=== PATIENT | female | born 1970 ===

== ENCOUNTER 2016-10-08 23:16 | Emergency (ER) | payer SELFPAY ==
[2016-10-08 23:39] VITALS: BP 159/96; PULSE 71; RESP 16; TEMP 98.5; O2SAT 100
--- NOTE | 2016-10-09 00:31 | ED PDOC ---
HPI: Skin/Bite Injury Time Seen by Provider: 10/09/16 00:08 Chief Complaint (Nursing): Abnormal Skin Integrity Chief Complaint (Provider): itchy rash History Per: Patient, Family (daughter is translating in Lithuanian for patient at bedside) Additional Complaint(s): 46-year-old female with history of hypertension presents to emergency department with itchy rash to entire body 1 week. Patient is unaware of any known allergen exposure, she denies any use of new lotions, soaps, detergents or perfumes. No recent travel, no dietary changes. No associated shortness of breath or throat discomfort. No medications taken for relief of pruritus. Past Medical History Reviewed: Historical Data Vital Signs: Last Vital Signs Temp 98.5 F 10/08/16 23:34 Pulse 71 10/08/16 23:34 Resp 16 10/08/16 23:34 BP 159/96 H 10/08/16 23:34 Pulse Ox 100 10/09/16 00:31 - Medical History PMH: HTN - Surgical History Surgical History: No Surg Hx - Family History Family History: States: No Known Family Hx - Living Arrangements Living Arrangements: With Family - Social History Current smoker - smoking cessation education provided: No Alcohol: None Drugs: Denies - Home Medications Home Medications: Ambulatory Orders Medication Instructions Recorded Cetirizine Hydrochloride [Zyrtec] 10 mg PO DAILY 05/30/14 Lisinopril/Hydrochlorothiazide 1 tab PO DAILY 05/30/14 [Lisinopril-Hctz 20-25 mg Tab] Tramadol Hydrochloride [Tramadol] 1 tab PO PRN PRN 05/30/14 Meclizine [Meclizine*] 25 mg PO BID PRN #10 tab 11/13/14 Ibuprofen [Motrin Tab] 800 mg PO TID PRN #30 tab 04/28/15 DiphenhydrAMINE [Benadryl] 25 mg PO ASDIR #1 packet 10/09/16 Prednisone 50 mg PO DAILY #5 tablet 10/09/16 - Allergies Allergies/Adverse Reactions: Allergies Allergy/AdvReac Type Severity Reaction Status Date / Time No Known Allergies Allergy Verified 03/30/14 16:18 Review of Systems ROS Statement: Except As Marked, All Systems Reviewed And Found Negative Constitutional: Negative for: Fever ENT: Negative for: Throat Pain, Throat Swelling Skin: Positive for: Rash Physical Exam - Reviewed Nursing Documentation Reviewed: Yes Vital Signs Reviewed: Yes - Physical Exam Appears: Positive for: Well, Non-toxic, No Acute Distress Head Exam: Positive for: ATRAUMATIC, NORMAL INSPECTION Skin: Positive for: Rash (Urticarial maculopapular lesions noted to bilateral upper and lower extremities as well as torso, no pustular lesions, no active drainage or bleeding) Eye Exam: Positive for: Normal appearance, EOMI, PERRL Cardiovascular/Chest: Positive for: Regular Rate, Rhythm Respiratory: Positive for: Normal Breath Sounds Extremity: Negative for: Pedal Edema Neurologic/Psych: Positive for: Alert, Oriented - ECG O2 Sat by Pulse Oximetry: 100 Pulse Ox Interpretation: Normal Medical Decision Making Medical Decision Making: Impression: Contact dermatitis. Plan: Oral Benadryl dose administered along with IM Solu-Medrol. Patient given prescriptions for Benadryl and prednisone. She was referred to clinic for follow-up. Disposition - Clinical Impression Clinical Impression: Contact dermatitis - Patient ED Disposition Is Patient to be Admitted: No Counseled Patient/Family Regarding: Diagnosis, Need For Followup, Rx Given - Disposition Referrals: [facility] [Outside] Disposition: Routine/Home Disposition Time: 00:52 Condition: STABLE Additional Instructions: Take prescription medications as directed. Follow up in 2-3 days with clinic. Prescriptions: DiphenhydrAMINE [Benadryl] 25 mg PO ASDIR #1 packet Prednisone 50 mg PO DAILY #5 tablet Instructions: Contact Dermatitis (ED) Print Language: HEBREW
== END 2016-10-09 01:53 | disposition home or self-care (01) ==
LOC: H.ER 23:16
DX: L25.9 Unspecified contact dermatitis, unspecified cause (principal)

== ENCOUNTER 2016-12-11 23:04 | Emergency (ER) | payer SELFPAY ==
[2016-12-11 23:12] VITALS: RESP 16; TEMP 98.8; O2SAT 99
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
[2016-12-12 00:09] VITALS: BP 186/84; PULSE 84
--- NOTE | 2016-12-12 08:44 | RAD ---
PROCEDURE: Radiographs of the Chest and Left Ribs. HISTORY: rib pain COMPARISON: None available. TECHNIQUE: Frontal radiograph of the chest and multiple oblique radiographs of the left ribs were obtained. FINDINGS: LEFT RIBS: No fracture or focal lesion visualized. LUNGS: Clear. PLEURA: No pneumothorax or pleural fluid. CARDIOVASCULAR: Normal sized heart. No pulmonary vascular congestion. OTHER FINDINGS: None. IMPRESSION: Evidence of acute fracture. No evidence of left pleural effusion or pneumothorax.
== END 2016-12-12 00:09 | disposition home or self-care (01) ==
LOC: H.ER 23:04
DX: S29.9XXA Unspecified injury of thorax, initial encounter (principal); V49.59XA Passenger injured in collision with other motor vehicles in traffic accident, initial encounter; Y92.410 Unspecified street and highway as the place of occurrence of the external cause

== ENCOUNTER 2017-06-14 09:32 | Emergency (ER) | payer SELFPAY ==
[2017-06-14 09:56] VITALS: TEMP 98.6
[2017-06-14 11:11] LABS: BASO % 0.3 % (0.0-2.0); EOS # 0.1 K/uL (0.0-0.7); EOS % 1.7 % (0.0-4.0); HEMOGLOBIN 13.2 g/dL (12.0-16.0); MEAN CELL VOLUME 80.4 fl (81.0-99.0); MEAN CORPUSCULAR HEMOGLOBIN 25.8 pg (27.0-31.0); MEAN CORPUSCULAR HGB CONC 32.1 g/dL (33.0-37.0); MEAN PLATELET VOLUME 8.1 fl (7.2-11.7); MONO # 0.3 K/uL (0.0-0.8); MONO % 6.4 % (0.0-10.0); NEUT # 3.8 K/uL (1.8-7.0); NEUT % 72.6 % (50.0-75.0); NRBC % 0.1 % (0.0-0.0); RBC 5.11 Mil/uL (3.80-5.20); RED CELL DISTRIBUTION WIDTH 14.1 % (11.5-14.5); WHITE BLOOD COUNT 5.2 K/uL (4.8-10.8)
--- NOTE | 2017-06-14 11:17 | ED PDOC ---
HPI: Hypertension/Hypotension Time Seen by Provider: 06/14/17 10:08 Chief Complaint (Nursing): High Blood Pressure Chief Complaint (Provider): High Blood Pressure History Per: Patient History/Exam Limitations: no limitations Onset/Duration Of Symptoms: Mins (cryptanalyst) Current Symptoms Are (Timing): Still Present Additional Complaint(s): Lina is a 47 y/o female with a history of hypertension who was sent to the ED from the clinic for high blood pressure. Patient has not taken medication for 3 months and states it is partly because her lost his job and she has been busy taking care of the family so she has neglected to follow up with a doctor. For the past 2-3 days she has had intermittent blurred vision that comes and goes. She denies neurological motor problems and states she didn't realize her blood pressure was high. PMD: Clinic Past Medical History Reviewed: Historical Data, Nursing Documentation, Vital Signs Vital Signs: Last Vital Signs Temp 98.6 F 06/14/17 09:51 Pulse 79 06/14/17 10:53 Resp 15 06/14/17 09:51 BP 190/103 H 06/14/17 10:53 Pulse Ox 100 06/14/17 09:51 - Medical History PMH: Gall Bladder Disease ((+) Gallstones), HTN Denies: HIV, Chronic Kidney Disease - Family History Family History: States: Unknown Family Hx - Home Medications Home Medications: Ambulatory Orders Medication Instructions Recorded Cetirizine Hydrochloride [Zyrtec] 10 mg PO DAILY 05/30/14 Lisinopril/Hydrochlorothiazide 1 tab PO DAILY 05/30/14 [Lisinopril-Hctz 20-25 mg Tab] Tramadol Hydrochloride [Tramadol] 1 tab PO PRN PRN 05/30/14 Meclizine [Meclizine*] 25 mg PO BID PRN #10 tab 11/13/14 Ibuprofen [Motrin Tab] 800 mg PO TID PRN #30 tab 04/28/15 DiphenhydrAMINE [Benadryl] 25 mg PO ASDIR #1 packet 10/09/16 Prednisone 50 mg PO DAILY #5 tablet 10/09/16 Ketorolac Tromethamine [Toradol] 10 mg PO TID #20 cap 12/11/16 Azithromycin [Zithromax] 250 mg PO DAILY #6 tab 12/12/16 Lisinopril/Hydrochlorothiazide 1 each PO DAILY #30 tablet 06/14/17 [Lisinopril-Hctz 20-25 mg Tab] - Allergies Allergies/Adverse Reactions: Allergies Allergy/AdvReac Type Severity Reaction Status Date / Time No Known Allergies Allergy Verified 06/14/17 09:51 Review of Systems ROS Statement: Except As Marked, All Systems Reviewed And Found Negative Eyes: Negative for: Vision Change Cardiovascular: Positive for: Other (high blood pressure). Negative for: Chest Pain Respiratory: Negative for: Shortness of Breath Musculoskeletal: Negative for: Back Pain Neurological: Negative for: Headache, Dizziness Physical Exam - Reviewed Nursing Documentation Reviewed: Yes Vital Signs Reviewed: Yes - Physical Exam Appears: Positive for: No Acute Distress Head Exam: Positive for: ATRAUMATIC, NORMOCEPHALIC Skin: Positive for: Normal Color, Warm, Dry. Negative for: Rash Neck: Positive for: Normal, Painless ROM, Supple Cardiovascular/Chest: Positive for: Regular Rate, Rhythm, Other (high blood pressure) Respiratory: Positive for: Normal Breath Sounds. Negative for: Respiratory Distress Gastrointestinal/Abdominal: Positive for: Normal Exam, Soft. Negative for: Tenderness Extremity: Negative for: Pedal Edema Neurologic/Psych: Positive for: Alert, Oriented. Negative for: Motor/Sensory Deficits - Laboratory Results Result Diagrams: 06/14/17 11:00 06/14/17 11:00 - ECG O2 Sat by Pulse Oximetry: 100 (RA) Pulse Ox Interpretation: Normal Medical Decision Making Medical Decision Making: Time: 10:39 Initial Impression: High blood pressure Initial Plan: --EKG --BMP --CBC --Catapres --Zestril Scribe Attestation: Documented by Arturo Layton, acting as a scribe for Dr. Donna Castro MD. Provider Scribe Attestation: All medical record entries made by the Scribe were at my direction and personally dictated by me. I have reviewed the chart and agree that the record accurately reflects my personal performance of the history, physical exam, medical decision making, and the department course for this patient. I have also personally directed, reviewed, and agree with the discharge instructions and disposition. 1.00pm - BP now in acceptable range. Case d/w with FP resident. okay to discharge with rx for continuation of previous medication. Disposition - Clinical Impression Clinical Impression: Uncontrolled hypertension - Patient ED Disposition Is Patient to be Admitted: No Doctor Will See Patient In The: Office Counseled Patient/Family Regarding: Studies Performed, Diagnosis, Need For Followup, Rx Given - Disposition Referrals: [facility] [Outside] Disposition: Routine/Home Disposition Time: 13:00 Condition: IMPROVED Prescriptions: Lisinopril/Hydrochlorothiazide [Lisinopril-Hctz 20-25 mg Tab] 1 each PO DAILY # 30 tablet Instructions: Hypertension (ED) Forms: [facility] (Japanese) Print Language: MACANESE - POA Present On Arrival: None
[2017-06-14 11:21] LABS: BLOOD UREA NITROGEN 9 mg/dl (7-17); GFR AFRICAN-AMERICAN > 60; GFR NON-AFRICAN AMERICAN > 60
[2017-06-14 12:26] VITALS: RESP 18
[2017-06-14 12:58] VITALS: PULSE 72
[2017-06-14 13:21] VITALS: BP 132/82; O2SAT 98
--- NOTE | 2017-06-14 14:02 | CARD ---
APPROVED REPORT EKG Measurement Heart [id number] <Conclusion> Normal sinus rhythm Normal ECG
== END 2017-06-14 13:26 | disposition home or self-care (01) ==
LOC: H.ER 09:32
DX: I10 Essential (primary) hypertension (principal)

== ENCOUNTER 2017-10-24 21:53 | Emergency (ER) | payer SELFPAY ==
[2017-10-24 22:46] VITALS: BP 151/89; PULSE 67; RESP 18; TEMP 98; O2SAT 100
--- NOTE | 2017-10-24 23:07 | ED PDOC ---
HPI: CCC, URI, Sore Throat Time Seen by Provider: 10/24/17 22:46 Chief Complaint (Nursing): ENT Problem History Per: Patient Additional Complaint(s): Pt. states for the past week she's had cough, congestion, sore throat. Reports cough is productive of white sputum. Denies chest pain, SOB, hemoptysis, fever, sick contacts, recent travel. Past Medical History Vital Signs: Last Vital Signs Temp 98.0 F 10/24/17 22:41 Pulse 67 10/24/17 22:41 Resp 18 10/24/17 22:41 BP 151/89 H 10/24/17 22:41 Pulse Ox 100 10/24/17 23:08 - Medical History PMH: Gall Bladder Disease ((+) Gallstones), HTN Denies: HIV, Chronic Kidney Disease - Family History Family History: States: Unknown Family Hx - Home Medications Home Medications: Ambulatory Orders Medication Instructions Recorded Cetirizine Hydrochloride [Zyrtec] 10 mg PO DAILY 05/30/14 Lisinopril/Hydrochlorothiazide 1 tab PO DAILY 05/30/14 [Lisinopril-Hctz 20-25 mg Tab] Tramadol Hydrochloride [Tramadol] 1 tab PO PRN PRN 05/30/14 Meclizine [Meclizine*] 25 mg PO BID PRN #10 tab 11/13/14 Ibuprofen [Motrin Tab] 800 mg PO TID PRN #30 tab 04/28/15 DiphenhydrAMINE [Benadryl] 25 mg PO ASDIR #1 packet 10/09/16 Prednisone 50 mg PO DAILY #5 tablet 10/09/16 Ketorolac Tromethamine [Toradol] 10 mg PO TID #20 cap 12/11/16 Azithromycin [Zithromax] 250 mg PO DAILY #6 tab 12/12/16 Lisinopril/Hydrochlorothiazide 1 each PO DAILY #30 tablet 06/14/17 [Lisinopril-Hctz 20-25 mg Tab] Azithromycin [Zithromax] 250 mg PO DAILY #6 tab 10/24/17 Benzonatate [Tessalon Perle] 100 mg PO Q8 PRN #10 capsule 10/24/17 - Allergies Allergies/Adverse Reactions: Allergies Allergy/AdvReac Type Severity Reaction Status Date / Time No Known Allergies Allergy Verified 10/24/17 22:41 Review of Systems ROS Statement: Except As Marked, All Systems Reviewed And Found Negative ENT: Positive for: Nose Congestion, Throat Pain Respiratory: Positive for: Cough Physical Exam - Physical Exam Appears: Positive for: Well, Non-toxic, No Acute Distress Skin: Positive for: Normal Color, Warm. Negative for: Rash Eye Exam: Positive for: Normal appearance ENT: Positive for: TM Is/Are (non-erythematous, non-bulging b/l), Pharyngeal Erythema. Negative for: Tonsillar Exudate, Tonsillar Swelling Cardiovascular/Chest: Positive for: Regular Rate, Rhythm Respiratory: Positive for: Normal Breath Sounds. Negative for: Rales, Wheezing , Plerual Rub Neurologic/Psych: Positive for: Alert, Oriented - ECG O2 Sat by Pulse Oximetry: 100 - Progress ED Course And Treament: Rapid strep: negative. Disposition - Clinical Impression Clinical Impression: Acute bronchitis - Patient ED Disposition Is Patient to be Admitted: No - Disposition Referrals: [facility] [Outside] Disposition: Routine/Home Disposition Time: 23:29 Condition: STABLE Additional Instructions: Follow up with PMD for further evaluation. Return to ED immediately if symptoms worsen. Prescriptions: Azithromycin [Zithromax] 250 mg PO DAILY #6 tab Benzonatate [Tessalon Perle] 100 mg PO Q8 PRN #10 capsule PRN Reason: Cough Instructions: Acute Bronchitis, Adult (DC) Forms: [employer] (Togolese)
== END 2017-10-24 23:43 | disposition home or self-care (01) ==
LOC: H.ER 21:53
DX: J20.9 Acute bronchitis, unspecified (principal); I10 Essential (primary) hypertension

== ENCOUNTER 2017-11-18 22:42 | Emergency (ER) | payer SELFPAY ==
[2017-11-18 22:49] VITALS: RESP 18
--- NOTE | 2017-11-18 23:28 | ED PDOC ---
HPI: Abdomen Time Seen by Provider: 11/18/17 23:12 Chief Complaint (Nursing): Abdominal Pain Chief Complaint (Provider): Abdominal Pain History Per: Patient History/Exam Limitations: no limitations Onset/Duration Of Symptoms: Days (x3) Current Symptoms Are (Timing): Still Present Location Of Pain/Discomfort: RUQ Additional Complaint(s): 47 y/o female with a PMHx of HTN and gall stones presents to the ED complaining of a dry hacking cough, onset three days. Patient states it could be related to her previous diagnosis of bronchitis. Patient reports she is coughing so much that she has now developed post-tussive vomiting. Patient states last night she developed right upper quadrant pain. Patient reports she is unsure whether it is related to her gall bladder or her cough that she's developed a strained muscle. Denies fevers, abnormal stools and urinary symptoms. PMD: None Provided Past Medical History Reviewed: Historical Data, Nursing Documentation, Vital Signs Vital Signs: Last Vital Signs Temp 99 F 11/18/17 22:46 Pulse 68 11/18/17 22:46 Resp 18 11/18/17 22:46 BP 152/81 H 11/18/17 22:46 Pulse Ox 100 11/19/17 00:53 - Medical History PMH: Bronchitis, Gall Bladder Disease ((+) Gallstones), HTN Denies: HIV, Chronic Kidney Disease - Surgical History Surgical History: No Surg Hx - Family History Family History: States: Unknown Family Hx - Home Medications Home Medications: Ambulatory Orders Medication Instructions Recorded Cetirizine Hydrochloride [Zyrtec] 10 mg PO DAILY 05/30/14 Lisinopril/Hydrochlorothiazide 1 tab PO DAILY 05/30/14 [Lisinopril-Hctz 20-25 mg Tab] Tramadol Hydrochloride [Tramadol] 1 tab PO PRN PRN 05/30/14 Meclizine [Meclizine*] 25 mg PO BID PRN #10 tab 11/13/14 Ibuprofen [Motrin Tab] 800 mg PO TID PRN #30 tab 04/28/15 DiphenhydrAMINE [Benadryl] 25 mg PO ASDIR #1 packet 10/09/16 Prednisone 50 mg PO DAILY #5 tablet 10/09/16 Ketorolac Tromethamine [Toradol] 10 mg PO TID #20 cap 12/11/16 Azithromycin [Zithromax] 250 mg PO DAILY #6 tab 12/12/16 Lisinopril/Hydrochlorothiazide 1 each PO DAILY #30 tablet 06/14/17 [Lisinopril-Hctz 20-25 mg Tab] Azithromycin [Zithromax] 250 mg PO DAILY #6 tab 10/24/17 Benzonatate [Tessalon Perle] 100 mg PO Q8 PRN #10 capsule 10/24/17 Ibuprofen [Motrin Tab] 600 mg PO Q6 #30 tab 11/19/17 Prednisone [Deltasone] 40 mg PO DAILY 3 Days #6 tablet 11/19/17 - Allergies Allergies/Adverse Reactions: Allergies Allergy/AdvReac Type Severity Reaction Status Date / Time No Known Allergies Allergy Verified 11/18/17 22:46 Review of Systems ROS Statement: Except As Marked, All Systems Reviewed And Found Negative Constitutional: Negative for: Fever Respiratory: Positive for: Cough (dry, hacking) Gastrointestinal: Positive for: Vomiting (post-tussive), Abdominal Pain (right upper quadrant) Genitourinary Female: Negative for: Dysuria, Hematuria Physical Exam - Reviewed Nursing Documentation Reviewed: Yes Vital Signs Reviewed: Yes - Physical Exam Appears: Positive for: Well, No Acute Distress Head Exam: Positive for: ATRAUMATIC, NORMOCEPHALIC Skin: Positive for: Normal Color, Warm, Dry Eye Exam: Positive for: EOMI, Normal appearance, PERRL Neck: Positive for: Normal, Painless ROM Cardiovascular/Chest: Positive for: Regular Rate, Rhythm. Negative for: Murmur Respiratory: Positive for: Normal Breath Sounds. Negative for: Respiratory Distress Gastrointestinal/Abdominal: Positive for: Normal Exam, Soft, Tenderness (mild right upper quadrant tenderness). Negative for: Other (Jones's sign ) Back: Positive for: Normal Inspection Extremity: Positive for: Normal ROM. Negative for: Pedal Edema, Deformity Neurologic/Psych: Positive for: Alert, Oriented. Negative for: Motor/Sensory Deficits - Laboratory Results Result Diagrams: 11/19/17 00:02 11/19/17 00:02 - ECG O2 Sat by Pulse Oximetry: 100 (RA) Pulse Ox Interpretation: Normal Medical Decision Making Medical Decision Making: Time: 2320 A/P: 47 y/o female with a history of HTN, gallstones and bronchitis with right upper quadrant pain and cough. -- Patient is well appearing and has normal vital signed. -- Concerned for gallstones vs. cholecystitis vs. muscle strain from coughing. -- Will obtain ultrasound and blood work -- Provide symptomatic relief -- BMP -- Lipase -- Liver Profile -- CBC with differentials -- CXR Two Views -- Toradol 30 mg IVP -- Urinalysis -- Gallbladder US Time: 50 US RESULTS FINDINGS: Liver: Probable fatty infiltration. No definite mass. No intrahepatic ductal dilatation. Gallbladder: Multiple gallstones. Up to 0.49 cm wall thickness (measurement likely overestimated on images). No pericholecystic fluid. Positive Jones's sign. Common bile duct: Up to 0.69 cm in diameter. No stones. Pancreas: Unremarkable as visualized. Right kidney: Normal echogenicity. No hydronephrosis. IMPRESSION: Cholelithiasis with mild gallbladder wall thickening, positive Jones's sign, and borderline ductal dilatation. Clinical correlation is needed. Thank you for allowing us to participate in the care of your patient. Dictated and Authenticated by: Jaron Hernandez MD 11/19/2017 12:51 AM Eastern Time ([place] & [place]) 200 Patient is feeling much better, no longer having pain. Requesting medication for "Bronchitis". Will give short course of steroid and NSAID. Advised followup with PMD. No concerned for cholecystitis at this time. Patient discharged in well appearing, good condition. Scribe Attestation: Documented by Jadon Stevens acting as a scribe for Dr. Bob Gates MD. Provider Scribe Attestation: All medical record entries made by the Scribe were at my direction and personally dictated by me. I have reviewed the chart and agree that the record accurately reflects my personal performance of the history, physical exam, medical decision making, and the department course for this patient. I have also personally directed, reviewed, and agree with the discharge instructions and disposition. Disposition - Clinical Impression Clinical Impression: Gallstones, Cough - Patient ED Disposition Is Patient to be Admitted: No - Disposition Referrals: Mk Joyce MD [Family Provider] - Disposition: Routine/Home Disposition Time: 02:03 Condition: IMPROVED Prescriptions: Ibuprofen [Motrin Tab] 600 mg PO Q6 #30 tab Prednisone [Deltasone] 40 mg PO DAILY 3 Days #6 tablet Instructions: Acute Bronchitis, Gallstones, Cough in Adults Forms: [facility] (Georgian) Print Language: HEBREW
[2017-11-19 00:09] LABS: BASO % 0.3 % (0.0-2.0); EOS # 0.2 K/uL (0.0-0.7); EOS % 3.2 % (0.0-4.0); HEMOGLOBIN 11.7 g/dL (12.0-16.0); LYMPH # 1.3 K/uL (1.0-4.3); LYMPH % 23.6 % (20.0-40.0); MEAN CELL VOLUME 82.8 fl (81.0-99.0); MEAN CORPUSCULAR HEMOGLOBIN 27.9 pg (27.0-31.0); MEAN CORPUSCULAR HGB CONC 33.8 g/dL (33.0-37.0); MEAN PLATELET VOLUME 8.7 fl (7.2-11.7); MONO # 0.5 K/uL (0.0-0.8); MONO % 9.1 % (0.0-10.0); NEUT # 3.6 K/uL (1.8-7.0); NEUT % 63.8 % (50.0-75.0); RBC 4.17 Mil/uL (3.80-5.20); RED CELL DISTRIBUTION WIDTH 13.4 % (11.5-14.5); WHITE BLOOD COUNT 5.7 K/uL (4.8-10.8)
[2017-11-19 00:15] LABS: ALT/SGPT 29 U/L (9-52); AST/SGOT 31 U/L (14-36); BILIRUBIN,DIRECT 0.2 mg/ml (0.0-0.4); BLOOD UREA NITROGEN 16 mg/dl (7-17); CALCIUM 8.9 mg/dL (8.4-10.2); GFR AFRICAN-AMERICAN > 60; GFR NON-AFRICAN AMERICAN > 60; LIPASE 136 U/L (23-300)
[2017-11-19 00:23] LABS: SQUAMOUS EPITHIAL 3 /hpf (0-5); URINE BILIRUBIN NEGATIVE (NEGATIVE); URINE BLOOD NEGATIVE (NEGATIVE); URINE CLARITY SLIGHTY-CLOUDY (Clear); URINE COLOR YELLOW (YELLOW); URINE GLUCOSE (UA) NEG (Normal); URINE LEUKOCYTE ESTERASE TRACE Leu/uL (Negative); URINE PROTEIN 30 mg/dL (NEGATIVE); URINE UROBILINOGEN 0.2-1.0 mg/dL (0.2-1.0)
[2017-11-19 07:54] VITALS: BP 108/68; PULSE 60; TEMP 98.2; O2SAT 98
--- NOTE | 2017-11-19 12:22 | RAD ---
Date of service: 11/18/2017 HISTORY: cough x 3 days COMPARISON: 12/11/2016 TECHNIQUE: Chest PA and lateral FINDINGS: LUNGS: No active pulmonary disease. PLEURA: No significant pleural effusion identified. No pneumothorax apparent. CARDIOVASCULAR: Normal. OSSEOUS STRUCTURES: No significant abnormalities. VISUALIZED UPPER ABDOMEN: Normal. OTHER FINDINGS: None. IMPRESSION: No active disease.
--- NOTE | 2017-11-19 17:15 | US ---
Date of service: 11/18/2017 HISTORY: RUQ pain COMPARISON: None. TECHNIQUE: Sonographic evaluation of the right upper quadrant of the abdomen. FINDINGS: LIVER: Measures 14.9 cm in length. Normal echogenicity of the liver parenchyma. No mass. No intrahepatic bile duct dilatation. GALLBLADDER: Cholelithiasis. Thickened wall up to 5 mm. No pericholecystic fluid. The positive sonographic Jones sign was noted by the technologist. The findings are concerning for acute cholecystitis. COMMON BILE DUCT: Measures 7 mm. No stones. No dilatation. PANCREAS: Unremarkable as visualized. No mass. No ductal dilatation. RIGHT KIDNEY: Measures 11.6 cm in length. Normal echogenicity. No calculus, mass, or hydronephrosis. AORTA: No aneurysmal dilatation. IVC: Unremarkable. OTHER FINDINGS: None . IMPRESSION: Findings concerning for acute cholecystitis. Cholelithiasis, thickened gallbladder wall and positive sonographic Jones sign. No additional abnormality. The preliminary findings for this examination were reported by [facility] at 12:51 a.m. on 11/19/2017. There is concurrence of this report with the preliminary findings.
== END 2017-11-19 02:45 | disposition home or self-care (01) ==
LOC: H.ER 22:42
DX: K80.20 Calculus of gallbladder without cholecystitis without obstruction (principal); I10 Essential (primary) hypertension; R05 Cough
CPT/HCPCS: 71046; 76705; 80048; 80076; 81003; 81025; 83690; 85025; 96374; 99283; J1885

== ENCOUNTER 2018-02-01 10:09 | Emergency (ER) | payer SELFPAY ==
[2018-02-01 10:15] VITALS: BMI 28.9
--- NOTE | 2018-02-01 10:48 | ED PDOC ---
HPI: CCC, URI, Sore Throat Time Seen by Provider: 02/01/18 10:35 Chief Complaint (Nursing): Cough, Cold, Congestion Chief Complaint (Provider): Throat pain History Per: Patient History/Exam Limitations: no limitations Onset/Duration Of Symptoms: Persistent Current Symptoms Are (Timing): Still Present Location Of Pain: Throat Associated Symptoms: Cough, Sputum Additional History Per: Patient Additional Complaint(s): 48yo female, history of hypertension, comes to ER reporting throat pain x 3 m onths with associated cough and white sputum. She denies any fever, chills, chest pain, shortness of breath, abdominal pain. No additional medical complaints. Past Medical History Reviewed: Historical Data, Nursing Documentation, Vital Signs Vital Signs: Last Vital Signs Temp 98.4 F 02/01/18 10:14 Pulse 74 02/01/18 10:14 Resp 16 02/01/18 10:14 BP 154/81 H 02/01/18 10:14 Pulse Ox 98 02/01/18 10:14 - Medical History PMH: Bronchitis, Gall Bladder Disease ((+) Gallstones), HTN Denies: HIV, Chronic Kidney Disease - Surgical History Surgical History: No Surg Hx - Family History Family History: States: No Known Family Hx - Home Medications Home Medications: Ambulatory Orders Medication Instructions Recorded Cetirizine Hydrochloride [Zyrtec] 10 mg PO DAILY 05/30/14 Lisinopril/Hydrochlorothiazide 1 tab PO DAILY 05/30/14 [Lisinopril-Hctz 20-25 mg Tab] Tramadol Hydrochloride [Tramadol] 1 tab PO PRN PRN 05/30/14 Meclizine [Meclizine*] 25 mg PO BID PRN #10 tab 11/13/14 Ibuprofen [Motrin Tab] 800 mg PO TID PRN #30 tab 04/28/15 DiphenhydrAMINE [Benadryl] 25 mg PO ASDIR #1 packet 10/09/16 Prednisone 50 mg PO DAILY #5 tablet 10/09/16 Ketorolac Tromethamine [Toradol] 10 mg PO TID #20 cap 12/11/16 Azithromycin [Zithromax] 250 mg PO DAILY #6 tab 12/12/16 Lisinopril/Hydrochlorothiazide 1 each PO DAILY #30 tablet 06/14/17 [Lisinopril-Hctz 20-25 mg Tab] Azithromycin [Zithromax] 250 mg PO DAILY #6 tab 10/24/17 Benzonatate [Tessalon Perle] 100 mg PO Q8 PRN #10 capsule 10/24/17 Ibuprofen [Motrin Tab] 600 mg PO Q6 #30 tab 11/19/17 Prednisone [Deltasone] 40 mg PO DAILY 3 Days #6 tablet 11/19/17 Benzonatate [Tessalon Perles] 100 mg PO BID PRN 5 Days sgl 02/01/18 - Allergies Allergies/Adverse Reactions: Allergies Allergy/AdvReac Type Severity Reaction Status Date / Time No Known Allergies Allergy Verified 11/18/17 22:46 Review of Systems ROS Statement: Except As Marked, All Systems Reviewed And Found Negative Constitutional: Negative for: Fever, Chills ENT: Positive for: Throat Pain Cardiovascular: Negative for: Chest Pain Respiratory: Positive for: Cough, Sputum. Negative for: Shortness of Breath Gastrointestinal: Negative for: Vomiting, Abdominal Pain Neurological: Negative for: Headache Physical Exam - Reviewed Nursing Documentation Reviewed: Yes Vital Signs Reviewed: Yes - Physical Exam Appears: Positive for: Non-toxic, No Acute Distress Head Exam: Positive for: ATRAUMATIC, NORMAL INSPECTION, NORMOCEPHALIC Skin: Positive for: Normal Color, Warm Eye Exam: Positive for: Normal appearance ENT: Positive for: Normal ENT Inspection. Negative for: Pharyngeal Erythema, Tonsillar Exudate, Tonsillar Swelling Neck: Positive for: Normal, Painless ROM, Supple Cardiovascular/Chest: Positive for: Regular Rate, Rhythm Respiratory: Positive for: Normal Breath Sounds Gastrointestinal/Abdominal: Positive for: Normal Exam, Soft Back: Positive for: Normal Inspection Extremity: Positive for: Normal ROM. Negative for: Pedal Edema Neurologic/Psych: Positive for: Alert, Oriented - ECG O2 Sat by Pulse Oximetry: 98 (RA) Pulse Ox Interpretation: Normal - Progress ED Course And Treament: 1047: Stable. AAOx3. Pain free. Tolerated Po. Advised to fu with clinic. Chronic symptoms. Medical Decision Making Medical Decision Making: Impression: 48yo female with cough Plan: -- Patient to be discharged home with prescription for Tessalon Perles. Informed to f/u at [facility]. Scribe Attestation: Documented by Tracy Bond, acting as a scribe for Richard Gates MD. Provider Scribe Attestation: All medical record entries made by the Scribe were at my direction and personally dictated by me. I have reviewed the chart and agree that the record accurately reflects my personal performance of the history, physical exam, medical decision making, and the department course for this patient. I have also personally directed, reviewed, and agree with the discharge instructions and disposition. Disposition - Clinical Impression Clinical Impression: Chronic cough - Patient ED Disposition Is Patient to be Admitted: No Counseled Patient/Family Regarding: Diagnosis, Need For Followup, Rx Given - Disposition Referrals: [facility] [Outside] - 02/02/18 Disposition: Routine/Home Disposition Time: 10:46 Condition: STABLE Additional Instructions: Return if not better in 3 days. Prescriptions: Benzonatate [Tessalon Perles] 100 mg PO BID PRN 5 Days sgl PRN Reason: Cough Instructions: Cough in Adults
[2018-02-01 11:06] VITALS: PULSE 78; RESP 19; TEMP 97
[2018-02-01 11:15] VITALS: BP 120/78; O2SAT 98
== END 2018-02-01 11:15 | disposition home or self-care (01) ==
LOC: H.ER 10:09
DX: R05 Cough (principal); I10 Essential (primary) hypertension

== ENCOUNTER 2018-06-23 07:07 | Emergency (ER) | payer SELFPAY ==
[2018-06-23 07:07] VITALS: BMI 28.9
[2018-06-23 07:24] VITALS: RESP 16; O2SAT 100
[2018-06-23] MEDS ORDERED: Sodium Chloride 0.9% 1,000 ML IV STA (08:14)
[2018-06-23 08:26] LABS: BASO % 0.4 % (0.0-2.0); EOS # 0.1 K/uL (0.0-0.7); EOS % 1.7 % (0.0-4.0); HEMOGLOBIN 11.6 g/dL (12.0-16.0); LYMPH # 1.4 K/uL (1.0-4.3); MEAN CELL VOLUME 81.7 fl (81.0-99.0); MEAN CORPUSCULAR HEMOGLOBIN 26.4 pg (27.0-31.0); MEAN CORPUSCULAR HGB CONC 32.3 g/dL (33.0-37.0); MEAN PLATELET VOLUME 8.8 fl (7.2-11.7); MONO # 0.5 K/uL (0.0-0.8); MONO % 8.8 % (0.0-10.0); NEUT # 3.5 K/uL (1.8-7.0); NEUT % 63.1 % (50.0-75.0); RBC 4.4 Mil/uL (3.80-5.20); RED CELL DISTRIBUTION WIDTH 14.2 % (11.5-14.5); WHITE BLOOD COUNT 5.5 K/uL (4.8-10.8)
[2018-06-23 08:33] LABS: ALB/GLOB RATIO 0.7 (1.0-2.1); ALBUMIN 3.6 g/dL (3.5-5.0); ALT/SGPT 21 U/L (9-52); AST/SGOT 26 U/L (14-36); BLOOD UREA NITROGEN 14 mg/dl (7-17); CALCIUM 8.9 mg/dL (8.4-10.2); GFR NON-AFRICAN AMERICAN > 60; LIPASE 110 U/L (23-300)
--- NOTE | 2018-06-23 09:04 | ED PDOC ---
HPI: Abdomen Time Seen by Provider: 06/23/18 07:53 Chief Complaint (Nursing): Abdominal Pain Chief Complaint (Provider): Abdominal Pain History Per: Patient History/Exam Limitations: language barrier Onset/Duration Of Symptoms: Hrs (morning) Current Symptoms Are (Timing): Constant Location Of Pain/Discomfort: RUQ, RLQ Associated Symptoms: Chills. denies: Fever, Nausea, Vomiting, Diarrhea Additional Complaint(s): Lina Cameron is a 48 year old female with a past medical history of HTN and pre-diabetes, who presents to the emergency department complaining of constant right sided abdominal pain. She states pain started when she woke up from sleeping this morning. Patient is complaining of dry mouth, chills and further states she has a sense of urgency but is unable to pee. She denies having nausea, vomiting, diarrhea, or fever. Patient states she takes medication for her hypertension. PMD: no provider Past Medical History Reviewed: Historical Data, Nursing Documentation, Vital Signs Vital Signs: Last Vital Signs Temp 97.7 F 06/23/18 07:19 Pulse 71 06/23/18 07:19 Resp 16 06/23/18 07:19 BP 191/92 H 06/23/18 07:19 Pulse Ox 100 06/23/18 07:19 - Medical History PMH: Bronchitis, Diabetes (pre diabetic), Gall Bladder Disease ((+) Gallstones), HTN Denies: HIV, Chronic Kidney Disease - Surgical History Surgical History: No Surg Hx - Family History Family History: States: Unknown Family Hx - Home Medications Home Medications: Ambulatory Orders Medication Instructions Recorded Cetirizine Hydrochloride [Zyrtec] 10 mg PO DAILY 05/30/14 Lisinopril/Hydrochlorothiazide 1 tab PO DAILY 05/30/14 [Lisinopril-Hctz 20-25 mg Tab] Tramadol Hydrochloride [Tramadol] 1 tab PO PRN PRN 05/30/14 Meclizine [Meclizine*] 25 mg PO BID PRN #10 tab 11/13/14 Ibuprofen [Motrin Tab] 800 mg PO TID PRN #30 tab 04/28/15 DiphenhydrAMINE [Benadryl] 25 mg PO ASDIR #1 packet 10/09/16 Prednisone 50 mg PO DAILY #5 tablet 10/09/16 Ketorolac Tromethamine [Toradol] 10 mg PO TID #20 cap 12/11/16 Azithromycin [Zithromax] 250 mg PO DAILY #6 tab 12/12/16 Lisinopril/Hydrochlorothiazide 1 each PO DAILY #30 tablet 06/14/17 [Lisinopril-Hctz 20-25 mg Tab] Azithromycin [Zithromax] 250 mg PO DAILY #6 tab 10/24/17 Benzonatate [Tessalon Perle] 100 mg PO Q8 PRN #10 capsule 10/24/17 Ibuprofen [Motrin Tab] 600 mg PO Q6 #30 tab 11/19/17 Prednisone [Deltasone] 40 mg PO DAILY 3 Days #6 tablet 11/19/17 Benzonatate [Tessalon Perles] 100 mg PO BID PRN 5 Days sgl 02/01/18 - Allergies Allergies/Adverse Reactions: Allergies Allergy/AdvReac Type Severity Reaction Status Date / Time No Known Allergies Allergy Verified 11/18/17 22:46 Review of Systems ROS Statement: Except As Marked, All Systems Reviewed And Found Negative Constitutional: Positive for: Chills. Negative for: Fever Gastrointestinal: Positive for: Abdominal Pain. Negative for: Nausea, Vomiting, Diarrhea Genitourinary Female: Positive for: Other (urgency but unable to pee) Physical Exam - Reviewed Nursing Documentation Reviewed: Yes Vital Signs Reviewed: Yes - Physical Exam Appears: Positive for: Non-toxic, No Acute Distress Head Exam: Positive for: ATRAUMATIC, NORMOCEPHALIC Eye Exam: Negative for: Scleral icterus ENT: Positive for: Other (dry tongue) Neck: Positive for: Normal, Painless ROM, Supple Cardiovascular/Chest: Positive for: Regular Rate, Rhythm. Negative for: Murmur Respiratory: Positive for: Normal Breath Sounds. Negative for: Respiratory Distress Gastrointestinal/Abdominal: Positive for: Tenderness (RUQ (+) Jones's sign tenderness) Back: Positive for: Normal Inspection. Negative for: L CVA Tenderness, R CVA Tenderness, Vertebral Tenderness - Laboratory Results Result Diagrams: 06/23/18 08:19 06/23/18 08:19 Lab Results: Total Bilirubin 0.4 mg/dl (0.2-1.3) 06/23/18 08:19 AST 26 U/L (14-36) 06/23/18 08:19 ALT 21 U/L (9-52) 06/23/18 08:19 Alkaline Phosphatase 117 U/L (38-126) 06/23/18 08:19 Total Protein 8.6 G/DL (6.3-8.2) H 06/23/18 08:19 Albumin 3.6 g/dL (3.5-5.0) 06/23/18 08:19 Globulin 5.0 gm/dL (2.2-3.9) H 06/23/18 08:19 Albumin/Globulin Ratio 0.7 (1.0-2.1) L 06/23/18 08:19 Lipase 110 U/L (23-300) 06/23/18 08:19 - ECG O2 Sat by Pulse Oximetry: 100 (RA) Pulse Ox Interpretation: Normal Medical Decision Making Medical Decision Making: Time: 813 Impression: cholecystitis Plan: --ED urine --ED urine dipstick --CBC with differential --CMP --Lipase --Pepcid 20 mg IVP --Sodium chloride 1,000 ml --Zofran 4 mg IVP --Abdomen complete US - Scribe Attestation: Documented by Eran Hurtado, acting as a scribe for Donna Castro MD. Provider Scribe Attestation: All medical record entries made by the Scribe were at my direction and person ally dictated by me. I have reviewed the chart and agree that the record accurately reflects my personal performance of the history, physical exam, medical decision making, and the department course for this patient. I have also personally directed, reviewed, and agree with the discharge instructions and disposition. Disposition - Clinical Impression Clinical Impression: Cholelithiasis - Patient ED Disposition Is Patient to be Admitted: No Doctor Will See Patient In The: Office Counseled Patient/Family Regarding: Diagnosis, Need For Followup - Disposition Referrals: [facility] [Outside] [facility] [Outside] Disposition: Routine/Home Disposition Time: 10:30 Condition: STABLE Instructions: Gallstones Forms: [employer] (Turkmen), [facility] ED School/Work Excuse Print Language: NIGERIAN - POReema Present On Arrival: None
[2018-06-23] MEDS ORDERED: Albuterol-Ipratrop 3 mg / 0.5 (3 ml) UD ONE (09:47)
[2018-06-23 11:27] VITALS: BP 155/84; PULSE 68; TEMP 98
--- NOTE | 2018-06-23 12:26 | US ---
Date of service: 06/23/2018 HISTORY: RUQ tenderness/jones's positive COMPARISON: 11/18/2017. Abdominal ultrasound TECHNIQUE: Sonographic evaluation of the abdomen. FINDINGS: LIVER: Measures 15.2 cm. Patent portal vein. Portal venous flow: Hepatopetal. Unremarkable echogenicity of the liver parenchyma. No mass. No intrahepatic bile duct dilatation. GALLBLADDER: Cholelithiasis. Negative study for gallbladder wall thickening, pericholecystic fluid, sonographic Jones's sign. COMMON BILE DUCT: Measures 7.6 mm. No stones. No dilatation. PANCREAS: Unremarkable as visualized. No mass. No ductal dilatation. RIGHT KIDNEY: Measures 4.6 x 11.3cm. Normal echogenicity. No calculus, mass, or hydronephrosis. LEFT KIDNEY: Measures 3.8 x 12.1cm. Normal echogenicity. No calculus, mass, or hydronephrosis. SPLEEN: Normal in size and contour. No mass. AORTA: No aneurysmal dilatation. IVC: Unremarkable. OTHER FINDINGS: None. IMPRESSION: Cholelithiasis. No sonographic evidence of acute cholecystitis.
== END 2018-06-23 11:25 | disposition home or self-care (01) ==
LOC: H.ER 07:07
DX: R68.83 Chills (without fever) (principal); K80.20 Calculus of gallbladder without cholecystitis without obstruction; I10 Essential (primary) hypertension; R73.03 Prediabetes
CPT/HCPCS: 76700; 80053; 81025; 83690; 85025; 96374; 96375; 99284; J2405; J7030